=== PATIENT | male | born 1945 | race Caucasian/White ===

== ENCOUNTER 2025-03-26 01:05 | Emergency (ER) | payer OTHER ==
[~2025-03-26] VITALS: Ht 180.3 cm; Wt 99.8 kg
== END 2025-03-26 03:00 | disposition home or self-care (01) ==
LOC: ER 01:05
DX: S01.01XA Laceration without foreign body of scalp, initial encounter (principal); W22.8XXA Striking against or struck by other objects, initial encounter
CPT/HCPCS: 12001; 70450; 72125; 99283-25